=== PATIENT | male | born 1975 | race African-American/Black ===

== ENCOUNTER 2022-07-24 11:37 | Inpatient (IN) | payer BC, SELFPAY ==
[2022-07-24 15:53] VITALS: BMI 38.9
[2022-07-24] MEDS ORDERED: Senokot S 8.6-50 MG TAB PO PRN (16:22)
[2022-07-24] MEDS ORDERED: Calcium Carbonate 500 MG ChewTAB PO PRN (16:22)
[2022-07-24] MEDS ORDERED: Ipratropium/Albuterol 3 ML NEB NEB PRN (16:22)
[2022-07-24] MEDS ORDERED: Ondansetron PF 4 MG/2 ML Vial IVP PRN (16:22)
[2022-07-24] MEDS ORDERED: Acetaminophen 325 MG TAB PO PRN (16:22)
[2022-07-24] MEDS ORDERED: Guaifenesin DM 100-10/5 ML UDCUP PO PRN (16:22)
[2022-07-24] MEDS ORDERED: Piperacillin/Tazobactam 3.375 GM in Sodium Chloride 0.9% 100 ML IVPB SCH ×2 (16:45→23:00)
[2022-07-24] MEDS ORDERED: VANCOMYCIN 2 GRAM/500 ML BAG 2 GM in Premix Bag 1 BAG IVPB SCH (17:00)
[2022-07-24] MEDS: Piperacillin/Tazobactam 3.375 GM in Sodium Chloride 0.9% 100 ML IVPB SCH (18:06)
[2022-07-24] MEDS: Sodium Chloride 0.9% 1,000 ML IV SCH (18:06)
[2022-07-24] MEDS ORDERED: Mometasone/Formoterol 200/5 60 PUFF INH SCH (18:30)
[2022-07-24] MEDS ORDERED: Piperacillin/Tazobactam 3.375 GM VIAL IVPB SCH (20:00)
[2022-07-24] MEDS: VANCOMYCIN 1.25 GM/250 ML BAG 1.25 GM in Premix Bag 1 BAG IVPB SCH (20:34)
[2022-07-24] MEDS: Famotidine/PF 20 mg/2ml Vial SLOW IVP SCH (20:34)
[2022-07-24] MEDS ORDERED: Vancomycin 1.5 GRAM/300 ML BAG IVPB SCH (21:00)
[2022-07-24] MEDS ORDERED: Morphine 2 MG/ML VIAL SLOW IVP SCH (23:00)
[2022-07-25] MEDS: Piperacillin/Tazobactam 3.375 GM in Sodium Chloride 0.9% 100 ML IVPB SCH ×3 (02:52→18:43)
[2022-07-25] MEDS ORDERED: Lorazepam 2 MG/ML VIAL SLOW IVP SCH (03:15)
[2022-07-25] MEDS ORDERED: VANCOMYCIN 1.25 GM/250 ML BAG 1.25 GM in Premix Bag 1 BAG IVPB SCH (06:00)
[2022-07-25] MEDS: Mometasone 200 MCG/Formoterol 5 MCG 120 PUFF INHALER INH SCH ×2 (07:22→22:37)
[2022-07-25 07:47] LABS: #Lymphocytes 1.2 thou/uL (1.20-3.40); #Neutrophils 14.7 thou/uL (1.40-6.50); %Basophils 0.1 % (0.0-1.0); %Eosinophils 0.2 % (0.0-10.0); %Lymphocytes 6.8 % (21.0-51.0); %Monocytes 11.3 % (0.0-10.0); %Neutrophils 81.7 % (42.0-75.0); Hemoglobin 13.8 g/dL (14.0-18.0); Mean Corpuscular HGB CONC 30.4 g/dL (32.0-36.0); Mean Corpuscular Hemoglobin 27.3 pg (27.0-31.0); Mean Corpuscular Volume 89.9 fl (78.0-98.0); Mean Platelet Volume 7.9 fL (7.4-10.4); Platelet Count 337 10x3/uL (130-400); RBC Distribution Width 16.7 % (11.5-14.5); Red Blood Cell (RBC) Count 5.04 mill/uL (4.70-6.10)
[2022-07-25] MEDS: Morphine 2 MG/ML VIAL SLOW IVP PRN ×2 (09:43→13:31)
[2022-07-25] MEDS: VANCOMYCIN 1.25 GM/250 ML BAG 1.25 GM in Premix Bag 1 BAG IVPB SCH ×2 (09:45→21:51)
[2022-07-25] MEDS: Famotidine/PF 20 mg/2ml Vial SLOW IVP SCH ×2 (09:45→20:48)
[2022-07-25] MEDS: Folic Acid 1 MG TAB PO SCH (09:45)
[2022-07-25] MEDS: Thiamine 100 MG TAB PO SCH (09:46)
[2022-07-25] MEDS ORDERED: methylPREDNISolone Sod Succ/PF 125 MG/2 ML VIAL IVP SCH (10:15)
[2022-07-25 10:39] LABS: Anion Gap 19 mmol/L (10-20); BUN (Urea Nitrogen) 25 mg/dL (8.9-20.6); Calc. Creatinine Clearance 114 mL/min (70-130); Calcium 8.4 mg/dL (7.8-10.44); Carbon Dioxide 24 mmol/L (22-29); Chloride 99 mmol/L (98-107); Estimated GFR 60; Glucose 132 mg/dL (70-105); Potassium 5.1 mmol/L (3.5-5.1); Sodium 137 mmol/L (136-145)
[2022-07-25] MEDS ORDERED: HYDROmorphone 0.5 MG/0.5 ML SYRINGE ONE (15:12)
[2022-07-25] MEDS ORDERED: Fentanyl 250 MCG/5 ML VIAL ONE (15:12)
[2022-07-25] MEDS ORDERED: SUGAMMADEX SODIUM 200 MG/2 ML VIAL ONE (15:13)
[2022-07-25] MEDS ORDERED: PHENYLEPHRINE-NS 100 MCG/ML 10 ML SYRINGE ONE (15:13)
[2022-07-25] MEDS ORDERED: Dexmedetomidine 200 MCG/2 ML VIAL ONE (15:20)
[2022-07-25] MEDS ORDERED: Bupivacaine HCl 0.5%/Epinephrine 1:200,000/PF 30 ml Vial ONE ×2 (15:21→17:20)
[2022-07-25] MEDS ORDERED: Ondansetron PF 4 MG/2 ML Vial ONE (15:59)
[2022-07-25] MEDS ORDERED: Vecuronium 10 MG VIAL ONE (15:59)
[2022-07-25] MEDS ORDERED: Dexamethasone 20 MG/5 ML VIAL ONE (15:59)
[2022-07-25] MEDS ORDERED: Lidocaine 1% PF 5 ML VIAL ONE (15:59)
[2022-07-25] MEDS ORDERED: Metoclopramide HCl 10 MG/2 ML VIAL ONE (15:59)
[2022-07-25] MEDS ORDERED: Rocuronium Bromide 10 MG/ML (10ML VIAL) ONE (15:59)
[2022-07-25] MEDS ORDERED: Dexamethasone 4 mg/ml Vial ONE (17:20)
[2022-07-25] MEDS ORDERED: HYDROmorphone 2 MG/ML VIAL ONE (17:28)
[2022-07-25] MEDS ORDERED: Ipratropium/Albuterol 3 ML NEB NEB PRN (17:41)
[2022-07-25] MEDS ORDERED: Promethazine HCl 25 MG/ML VIAL IM PRN ×2 (17:41→18:09)
[2022-07-25] MEDS ORDERED: Ondansetron PF 4 MG/2 ML Vial IVP PRN ×2 (17:41→18:09)
[2022-07-25] MEDS ORDERED: Naloxone HCl 0.4 mg/ml Vial IV PRN (18:09)
[2022-07-25] MEDS ORDERED: diphenhydrAMINE 50 MG/ML VIAL IVP PRN (18:09)
[2022-07-25] MEDS ORDERED: diphenhydrAMINE 25 MG CAP PO PRN (18:09)
[2022-07-25] MEDS ORDERED: diphenhydrAMINE 50 MG/ML VIAL IM PRN (18:09)
[2022-07-25] MEDS ORDERED: Zolpidem Tartrate 5 MG TAB PO PRN (18:09)
[2022-07-25] MEDS ORDERED: Communication Order-Pharmacy FS SCH (18:15)
[2022-07-25] MEDS: Sodium Chloride 0.9% 1,000 ML IV SCH ×3 (18:24→21:55)
[2022-07-25] MEDS: HYDROmorphone 10 mg/100 ml CADD IVPB PRN (20:48)
[2022-07-25 21:58] LABS: Vancomycin, Trough 8.1 ug/mL
[2022-07-25] MEDS ORDERED: Electrolyte Replacement Protocol 1 EACH FS PRN (22:30)
[2022-07-26] MEDS: Piperacillin/Tazobactam 3.375 GM in Sodium Chloride 0.9% 100 ML IVPB SCH ×4 (03:12→22:00)
[2022-07-26 04:46] LABS: Anisocytosis SLIGHT = 6-15 cells (100X) (0-5/hpf); Band 6 % (5-11); Eosinophils 2 % (0-10); Hemoglobin 12.6 g/dL (14.0-18.0); Hypochromia SLIGHT = 6-15 cells (100X) (0-5/hpf); Lymphocytes 4 % (21-51); MDiff Complete? YES; Mean Corpuscular HGB CONC 29.9 g/dL (32.0-36.0); Mean Corpuscular Hemoglobin 27.1 pg (27.0-31.0); Mean Corpuscular Volume 90.7 fl (78.0-98.0); Mean Platelet Volume 8.7 fL (7.4-10.4); Metamyelocyte 1 % (0-0); Monocytes 6 % (0-10); Neutrophil 81 % (42-75); Platelet Count 313 10x3/uL (130-400); Platelet Morphology Comment Appears Adequate; RBC Distribution Width 16.2 % (11.5-14.5); Red Blood Cell (RBC) Count 4.63 mill/uL (4.70-6.10); Target Cells SLIGHT = 2-5 cells (100X) (0-1/hpf); White Blood Cell (WBC) Count 21.1 10x3/uL (4.8-10.8)
[2022-07-26] MEDS: Sodium Chloride 0.9% 1,000 ML IV SCH ×2 (06:03→20:48)
[2022-07-26] MEDS: VANCOMYCIN 2 GRAM/500 ML BAG 2 GM in Premix Bag 1 BAG IVPB SCH ×2 (08:07→20:47)
[2022-07-26] MEDS: Mometasone 200 MCG/Formoterol 5 MCG 120 PUFF INHALER INH SCH ×2 (08:09→18:39)
[2022-07-26] MEDS: Folic Acid 1 MG TAB PO SCH (09:12)
[2022-07-26] MEDS: Famotidine/PF 20 mg/2ml Vial SLOW IVP SCH ×2 (09:12→22:00)
[2022-07-26] MEDS: Thiamine 100 MG TAB PO SCH (09:12)
[2022-07-26 10:01] LABS: Chloride 98 mmol/L (98-107); Potassium 4.8 mmol/L (3.5-5.1); Sodium 135 mmol/L (136-145)
[2022-07-26 10:02] LABS: Glucose 202 mg/dL (70-105)
[2022-07-26 10:03] LABS: Anion Gap 16 mmol/L (10-20); Carbon Dioxide 26 mmol/L (22-29)
[2022-07-26 10:05] LABS: Calc. Creatinine Clearance 102 mL/min (70-130); Estimated GFR 53
[2022-07-26 10:06] LABS: BUN (Urea Nitrogen) 23 mg/dL (8.9-20.6)
[2022-07-26] MEDS: hydrALAZINE 20 MG/ML VIAL SLOW IVP PRN (16:28)
[2022-07-27] MEDS: hydrALAZINE 20 MG/ML VIAL SLOW IVP PRN (02:50)
[2022-07-27] MEDS: Sodium Chloride 0.9% 1,000 ML IV SCH ×3 (06:04→21:02)
[2022-07-27 06:33] LABS: Hemoglobin 11.5 g/dL (14.0-18.0); Mean Corpuscular HGB CONC 30.8 g/dL (32.0-36.0); Mean Corpuscular Hemoglobin 27.6 pg (27.0-31.0); Mean Corpuscular Volume 89.6 fl (78.0-98.0); Mean Platelet Volume 7.5 fL (7.4-10.4); Platelet Count 357 10x3/uL (130-400); RBC Distribution Width 15.7 % (11.5-14.5); Red Blood Cell (RBC) Count 4.17 mill/uL (4.70-6.10); White Blood Cell (WBC) Count 18.6 10x3/uL (4.8-10.8)
[2022-07-27 06:49] LABS: Anion Gap 12 mmol/L (10-20); BUN (Urea Nitrogen) 18 mg/dL (8.9-20.6); Calc. Creatinine Clearance 134 mL/min (70-130); Calcium 8.3 mg/dL (7.8-10.44); Carbon Dioxide 28 mmol/L (22-29); Chloride 100 mmol/L (98-107); Estimated GFR 68; Glucose 109 mg/dL (70-105); Potassium 4.8 mmol/L (3.5-5.1); Sodium 135 mmol/L (136-145)
[2022-07-27] MEDS: Piperacillin/Tazobactam 3.375 GM in Sodium Chloride 0.9% 100 ML IVPB SCH ×3 (07:07→14:44)
[2022-07-27] MEDS: Mometasone 200 MCG/Formoterol 5 MCG 120 PUFF INHALER INH SCH ×2 (07:22→19:12)
[2022-07-27 07:52] LABS: Band 4 % (5-11); Lymphocytes 5 % (21-51); MDiff Complete? YES; Monocytes 7 % (0-10); Myelocyte 1 % (0-0); Neutrophil 83 % (42-75); Platelet Morphology Comment Appears Adequate; Polychromasia SLIGHT = 2-3 cells (100X) (0-2/hpf)
[2022-07-27] MEDS: Amlodipine 5 MG TAB PO SCH (09:15)
[2022-07-27] MEDS: Folic Acid 1 MG TAB PO SCH (09:16)
[2022-07-27] MEDS: Thiamine 100 MG TAB PO SCH (09:16)
[2022-07-27] MEDS: Famotidine/PF 20 mg/2ml Vial SLOW IVP SCH ×2 (09:16→21:02)
[2022-07-27] MEDS: HYDROmorphone 10 mg/100 ml CADD IVPB PRN (13:14)
[2022-07-27] MEDS: cefTRIAXone\\ROCEPHIN 2 GM in Sodium Chloride 0.9% 100 ML IVPB SCH (14:45)
[2022-07-28] MEDS: Sodium Chloride 0.9% 1,000 ML IV SCH ×2 (05:52→15:30)
[2022-07-28] MEDS: Mometasone 200 MCG/Formoterol 5 MCG 120 PUFF INHALER INH SCH ×2 (08:05→19:11)
[2022-07-28] MEDS: Thiamine 100 MG TAB PO SCH (09:16)
[2022-07-28] MEDS: Famotidine/PF 20 mg/2ml Vial SLOW IVP SCH ×2 (09:16→20:36)
[2022-07-28] MEDS: Amlodipine 5 MG TAB PO SCH (09:16)
[2022-07-28] MEDS: Folic Acid 1 MG TAB PO SCH (09:16)
[2022-07-28] MEDS: cefTRIAXone\\ROCEPHIN 2 GM in Sodium Chloride 0.9% 100 ML IVPB SCH (14:11)
[2022-07-28] MEDS: HYDROcodone/Acetaminophen 7.5/325 mg Tablet PO PRN ×2 (16:22→20:34)
[2022-07-28] MEDS: metroNIDAZOLE 500 MG in Premix Bag 1 BAG IVPB SCH (20:37)
[2022-07-29] MEDS: HYDROcodone/Acetaminophen 7.5/325 mg Tablet PO PRN ×6 (00:33→20:41)
[2022-07-29] MEDS: Sodium Chloride 0.9% 1,000 ML IV SCH (04:11)
[2022-07-29] MEDS: metroNIDAZOLE 500 MG in Premix Bag 1 BAG IVPB SCH ×3 (04:34→20:42)
[2022-07-29] MEDS: hydrALAZINE 20 MG/ML VIAL SLOW IVP PRN ×3 (04:34→18:43)
[2022-07-29] MEDS: Mometasone 200 MCG/Formoterol 5 MCG 120 PUFF INHALER INH SCH ×2 (07:14→19:43)
[2022-07-29] MEDS: Amlodipine 5 MG TAB PO SCH (08:38)
[2022-07-29] MEDS: Folic Acid 1 MG TAB PO SCH (08:38)
[2022-07-29] MEDS: Thiamine 100 MG TAB PO SCH (08:38)
[2022-07-29] MEDS: Famotidine/PF 20 mg/2ml Vial SLOW IVP SCH ×2 (08:41→20:42)
[2022-07-29 09:30] LABS: #Basophils 0.1 thou/uL (0.0-0.2); #Eosinphils 0.1 thou/uL (0.0-0.7); #Lymphocytes 1.5 thou/uL (1.20-3.40); #Monocytes 1.4 thou/uL (0.11-0.59); #Neutrophils 8.9 thou/uL (1.40-6.50); %Basophils 0.8 % (0.0-1.0); %Lymphocytes 12.7 % (21.0-51.0); %Monocytes 11.4 % (0.0-10.0); %Neutrophils 74.1 % (42.0-75.0); Hemoglobin 11.3 g/dL (14.0-18.0); Mean Corpuscular HGB CONC 31.1 g/dL (32.0-36.0); Mean Corpuscular Hemoglobin 27.1 pg (27.0-31.0); Mean Corpuscular Volume 87.4 fl (78.0-98.0); Mean Platelet Volume 7.2 fL (7.4-10.4); Platelet Count 365 10x3/uL (130-400); RBC Distribution Width 15.8 % (11.5-14.5); Red Blood Cell (RBC) Count 4.18 mill/uL (4.70-6.10); White Blood Cell (WBC) Count 11.9 10x3/uL (4.8-10.8)
[2022-07-29 09:48] LABS: Anion Gap 12 mmol/L (10-20); BUN (Urea Nitrogen) 16 mg/dL (8.9-20.6); Calc. Creatinine Clearance 153 mL/min (70-130); Calcium 8.3 mg/dL (7.8-10.44); Carbon Dioxide 26 mmol/L (22-29); Chloride 101 mmol/L (98-107); Estimated GFR 80; Glucose 113 mg/dL (70-105); Sodium 135 mmol/L (136-145)
[2022-07-29] MEDS ORDERED: Polyethylene Glycol 3350 17 GM Packet PO PRN (10:52)
[2022-07-29] MEDS ORDERED: Docusate 100 MG CAP PO PRN (10:52)
[2022-07-29] MEDS ORDERED: Polyethylene Glycol 3350 17 GM Packet PO SCH (11:00)
[2022-07-29] MEDS ORDERED: Docusate 100 MG CAP PO SCH (11:00)
[2022-07-29] MEDS: cefTRIAXone\\ROCEPHIN 2 GM in Sodium Chloride 0.9% 100 ML IVPB SCH (14:57)
[2022-07-30] MEDS: HYDROcodone/Acetaminophen 7.5/325 mg Tablet PO PRN ×6 (02:08→22:59)
[2022-07-30] MEDS: hydrALAZINE 20 MG/ML VIAL SLOW IVP PRN (03:25)
[2022-07-30] MEDS ORDERED: Morphine 2 MG/ML VIAL SLOW IVP SCH (04:15)
[2022-07-30] MEDS: metroNIDAZOLE 500 MG in Premix Bag 1 BAG IVPB SCH ×3 (05:34→22:59)
[2022-07-30] MEDS: Mometasone 200 MCG/Formoterol 5 MCG 120 PUFF INHALER INH SCH ×2 (06:52→18:39)
[2022-07-30 08:26] LABS: ALT (SGPT) 32 U/L (8-55); AST (SGOT) 29 U/L (5-34); Albumin 3.1 g/dL (3.5-5.0); Alkaline Phosphatase 32 U/L (40-110); Bilirubin, Direct 0.3 mg/dL (0.1-0.3); Bilirubin, Total 0.8 mg/dL (0.2-1.2)
[2022-07-30] MEDS: Thiamine 100 MG TAB PO SCH (09:20)
[2022-07-30] MEDS: Amlodipine 5 MG TAB PO SCH (09:20)
[2022-07-30] MEDS: Folic Acid 1 MG TAB PO SCH (09:20)
[2022-07-30] MEDS: Famotidine/PF 20 mg/2ml Vial SLOW IVP SCH (09:21)
[2022-07-30] MEDS ORDERED: Bisacodyl 5 MG TAB PO SCH (10:45)
[2022-07-30] MEDS ORDERED: Docusate 100 MG CAP PO SCH (10:45)
[2022-07-30] MEDS ORDERED: Polyethylene Glycol 3350 17 GM Packet PO SCH (10:45)
[2022-07-30] MEDS: cefTRIAXone\\ROCEPHIN 2 GM in Sodium Chloride 0.9% 100 ML IVPB SCH (15:04)
[2022-07-30] MEDS: Famotidine 20 MG TAB PO SCH (20:55)
[2022-07-31] MEDS: HYDROcodone/Acetaminophen 7.5/325 mg Tablet PO PRN ×2 (03:22→08:01)
[2022-07-31] MEDS: metroNIDAZOLE 500 MG in Premix Bag 1 BAG IVPB SCH ×2 (05:39→14:04)
[2022-07-31] MEDS: Thiamine 100 MG TAB PO SCH (08:10)
[2022-07-31] MEDS: Famotidine 20 MG TAB PO SCH (08:10)
[2022-07-31] MEDS: Folic Acid 1 MG TAB PO SCH (08:10)
[2022-07-31] MEDS: Amlodipine 5 MG TAB PO SCH (08:10)
[2022-07-31] MEDS ORDERED: Acetaminophen 500 MG TAB PO PRN (08:40)
[2022-07-31] MEDS ORDERED: Acetaminophen 325 MG TAB PO PRN (08:40)
[2022-07-31] MEDS ORDERED: Amlodipine 5 MG TAB PO SCH (08:45)
[2022-07-31] MEDS: Mometasone 200 MCG/Formoterol 5 MCG 120 PUFF INHALER INH SCH (09:11)
[2022-07-31] MEDS: cefTRIAXone\\ROCEPHIN 2 GM in Sodium Chloride 0.9% 100 ML IVPB SCH (14:04)
[2022-07-31 16:00] VITALS: BP 123/75; TEMP 98.2
[2022-08-01] MEDS ORDERED: Amlodipine 10 MG TAB PO SCH (09:00)
== END 2022-07-31 16:20 | disposition home or self-care (01) | DRG 853 ==
LOC: IMCU/EMU 15:12 → CCU 07-25 16:52 → IMCU/EMU 07-26 12:32 → T4-B 07-28 11:26
PROVIDERS: ADMIT Internal Medicine; ATTEND Internal Medicine
PROC: 3E03329 Introduction of Other Anti-infective into Peripheral Vein, Percutaneous Approach (ICD-10-PCS; principal; 2022-07-24)
PROC: 5A09357 Assistance with Respiratory Ventilation, Less than 24 Consecutive Hours, Continuous Positive Airway Pressure (ICD-10-PCS; 2022-07-24)
PROC: 0B9L0ZZ Drainage of Left Lung, Open Approach (ICD-10-PCS; 2022-07-25)
PROC: 0BNL0ZZ Release Left Lung, Open Approach (ICD-10-PCS; 2022-07-25)
PROC: 02HV33Z Insertion of Infusion Device into Superior Vena Cava, Percutaneous Approach (ICD-10-PCS; 2022-07-30)
PROC: B5181ZA Fluoroscopy of Superior Vena Cava using Low Osmolar Contrast, Guidance (ICD-10-PCS; 2022-07-30)
DX: A40.8 Other streptococcal sepsis (principal); J85.1 Abscess of lung with pneumonia; J96.01 Acute respiratory failure with hypoxia; N17.9 Acute kidney failure, unspecified; Z68.41 Body mass index [BMI] 40.0-44.9, adult; J91.8 Pleural effusion in other conditions classified elsewhere; R65.20 Severe sepsis without septic shock; N18.9 Chronic kidney disease, unspecified; K59.00 Constipation, unspecified; F10.20 Alcohol dependence, uncomplicated; E66.01 Morbid (severe) obesity due to excess calories; J45.909 Unspecified asthma, uncomplicated; Z78.1 Physical restraint status; Z83.6 Family history of other diseases of the respiratory system; Z79.899 Other long term (current) drug therapy
CPT/HCPCS: 36415; 36569; 71045; 74018; 80048; 80076; 80202; 85025; 87070; 87077; 87186; 87205; 94640; 94660; C1751; J0360; J0696; J1100; J1170; J1650; J2060; J2272; J2405; J2543; J2765; J2930; J3010; J3370; J3490; J7050; J7611; S0028

== ENCOUNTER 2022-08-13 15:09 | Outpatient (CLI) | payer BC | END 2022-08-13 15:10 | disposition home or self-care (01) | LOC: BICRAD 15:09 | PROVIDERS: ATTEND Thoracic Surgery (Cardiothoracic Vascular Surgery) | DX: J86.9 Pyothorax without fistula (principal); J98.4 Other disorders of lung | CPT/HCPCS: 71046 ==

== ENCOUNTER 2022-08-22 14:30 | Outpatient (CLI) | payer BC | END 2022-08-22 14:31 | disposition home or self-care (01) | LOC: BICRAD 14:30 | PROVIDERS: ATTEND Family Medicine | DX: J86.9 Pyothorax without fistula (principal); J90 Pleural effusion, not elsewhere classified; R91.8 Other nonspecific abnormal finding of lung field | CPT/HCPCS: 71046 ==

== ENCOUNTER 2022-08-28 14:24 | Emergency (ER) | payer BC ==
[2022-08-28 15:43] LABS: #Eosinphils 0.1 thou/uL (0.0-0.7); #Lymphocytes 1.3 thou/uL (1.20-3.40); #Monocytes 0.7 thou/uL (0.11-0.59); %Basophils 0.2 % (0.0-1.0); %Eosinophils 0.8 % (0.0-10.0); %Lymphocytes 11.8 % (21.0-51.0); %Monocytes 6.1 % (0.0-10.0); %Neutrophils 81.1 % (42.0-75.0); Hemoglobin 13.9 g/dL (14.0-18.0); Mean Corpuscular HGB CONC 30.1 g/dL (32.0-36.0); Mean Corpuscular Hemoglobin 25.8 pg (27.0-31.0); Mean Corpuscular Volume 85.7 fl (78.0-98.0); Mean Platelet Volume 8.7 fL (7.4-10.4); Platelet Count 305 10x3/uL (130-400); RBC Distribution Width 20.8 % (11.5-14.5); Red Blood Cell (RBC) Count 5.39 mill/uL (4.70-6.10)
[2022-08-28 15:48] LABS: INR-International Normal Ratio 0.9; PTT 24.1 sec (22.9-36.1); Prothrombin Time 12.8 sec (12.0-14.7)
[2022-08-28 15:56] LABS: Anion Gap 13 mmol/L (10-20); BUN (Urea Nitrogen) 16 mg/dL (8.9-20.6); Calc. Creatinine Clearance 0 mL/min (70-130); Calcium 9.5 mg/dL (7.8-10.44); Carbon Dioxide 30 mmol/L (22-29); Chloride 97 mmol/L (98-107); Estimated GFR 75; Glucose 96 mg/dL (70-105); Potassium 4.8 mmol/L (3.5-5.1); Sodium 135 mmol/L (136-145)
[2022-08-28] MEDS ORDERED: Apixaban 5 MG TAB PO SCH (17:00)
== END 2022-08-28 17:21 | disposition home or self-care (01) ==
LOC: ERS 14:24
DX: I82.621 Acute embolism and thrombosis of deep veins of right upper extremity (principal); I10 Essential (primary) hypertension; D72.829 Elevated white blood cell count, unspecified
CPT/HCPCS: 36415; 71045; 80048; 85025; 85610; 85730